=== PATIENT | female | born 1995 | race Native Hawaiian/Other Pacific Islander ===

== ENCOUNTER 2016-12-15 12:48 | Emergency (ER) | payer OTHER ==
[~2016-12-15] VITALS: Ht 152.4 cm; Wt 47.0 kg
[2016-12-15] MEDS ORDERED: GUAIF10 PO (12:54)
[2016-12-15 14:46] VITALS: BP 108/66
== END 2016-12-15 15:15 | disposition home or self-care (01) ==
LOC: EMS 12:51
DX: J06.9 Acute upper respiratory infection, unspecified (principal); F17.210 Nicotine dependence, cigarettes, uncomplicated
CPT/HCPCS: 99281

== ENCOUNTER → 2017-04-13 | Outpatient (CLI) | payer OTHER ==
[~2017-04-13] MED LIST: GUAIF10 PO
== END | disposition home or self-care (01) ==
LOC: RADPV 07:43
PROVIDERS: ATTEND Family Medicine
DX: R05 Cough (principal)
CPT/HCPCS: 71020